=== PATIENT | female | born 2000 ===

== ENCOUNTER 2024-02-05 16:08 | Emergency (ER) | payer SELFPAY ==
[2024-02-05 19:11] LABS: BILIRUBIN,URINE NEGATIVE (NEGATIVE); COLOR,URINE YELLOW; GLUCOSE,URINE NEGATIVE (NEGATIVE); KETONES,URINE NEGATIVE (NEGATIVE); LEUKOCYTE ESTERASE,URINE SMALL (NEGATIVE); NITRITE,URINE NEGATIVE (NEGATIVE); OCCULT BLOOD,URINE NEGATIVE (NEGATIVE); PROTEIN,URINE NEGATIVE (NEGATIVE); UROBILINOGEN,URINE 0.2 EU/dL (<2.0)
[2024-02-05 19:15] LABS: APPEARANCE,URINE SLT CLOUDY
[2024-02-05 19:15] LABS: CANDIDA DNA PROBE NEGATIVE (NEGATIVE); GARDNERELLA DNA PROBE POSITIVE (NEGATIVE); TRICHOMONAS DNA PROBE NEGATIVE (NEGATIVE)
[2024-02-05 19:16] LABS: BACTERIA,URINE FEW (NEGATIVE); EPITHELIAL CELLS,URINE RARE (NONE-FEW); MUCUS,URINE FEW (NONE-MOD); RBC,URINE 0-1 (0-2/HPF); WBC,URINE 25-30 (0-5/HPF)
[2024-02-05 19:58] LABS: C. TRACHOMATIS BY PCR DETECTED; N. GONORRHOEAE BY PCR DETECTED
[2024-02-05] MEDS: Doxycycline 100 MG Cap PO ONE (21:10)
[2024-02-05] MEDS: metroNIDAZOLE 250 MG Tab PO ONE (21:10)
[2024-02-05] MEDS: cefTRIAXone 1 GM Vial IM ONE (21:11)
== END 2024-02-05 21:30 | disposition home or self-care (01) ==
LOC: MW.ED 16:08
DX: N76.0 Acute vaginitis (principal); A54.9 Gonococcal infection, unspecified; A74.9 Chlamydial infection, unspecified; N39.0 Urinary tract infection, site not specified; Z75.8 Other problems related to medical facilities and other health care
CPT/HCPCS: 81001; 81003; 81025; 87086; 87480; 87491; 87510; 87591; 87660; 96372; 99284; A9270; J0696; 99283